=== PATIENT | female | born 1975 | race Caucasian/White ===

== ENCOUNTER 2020-08-26 00:31 | Outpatient (CLI) | payer OTHER, SELFPAY ==
[2020-08-26 19:24] LABS: SARS-CoV-2 RNA PCR Negative
== END 2020-08-26 00:32 | disposition home or self-care (01) ==
LOC: ANHCOVIDDT 00:31
PROVIDERS: PCP Family Medicine; Visit Provider Surgery
DX: Z01.818 Encounter for other preprocedural examination (principal); Z20.828 Contact with and (suspected) exposure to other viral communicable diseases
CPT/HCPCS: 87635; C9803; U0003

== ENCOUNTER 2020-08-26 09:02 | Outpatient (CLI) | payer OTHER, SELFPAY ==
--- NOTE | 2020-08-26 09:04 | ECG_ITS ---
Measurements Intervals [place] Rate: 90 P: -12 UT: 166 QRS: -9 QRSD: 86 T: 36 QT: 359 QTc: 440 Interpretive Statements SINUS RHYTHM BORDERLINE R WAVE PROGRESSION, ANTERIOR LEADS BASELINE ARTIFACT- II, III, AVF BORDERLINE ECG Electronically Signed On 08-26-2020 9:32:32 SAFETY COORDINATOR by Stefan Gu D.O.
[2020-08-26 10:01] LABS: Alanine Aminotransferase 34 U/L (4-35); Albumin Level 4.4 g/dL (3.5-5.1); Alkaline Phosphatase 109 U/L (38-126); Amylase 76 U/L (30-110); Aspartate Amino Transferase 36 U/L (14-36); Bilirubin,Total 0.6 mg/dL (0.2-1.3); Lipase 71 U/L (23-300)
[2020-08-26 10:03] LABS: Anion Gap 9 mmol/L (8-16); Blood Urea Nitrogen 10 mg/dL (7-17); Calcium 8.7 mg/dL (8.4-10.2); Carbon Dioxide 29 mmol/L (22-30); Chloride 101 mmol/L (98-107); Estimated Glomerular Filt Rate > 60; Glucose 192 mg/dL (65-105); Potassium 3.8 mmol/L (3.4-5.0); Sodium 139 mmol/L (137-145)
== END 2020-08-26 09:03 | disposition home or self-care (01) ==
LOC: ANHSURGERY 09:04
PROVIDERS: Anesthesiology; PCP Family Medicine; Visit Provider Surgery
DX: K80.10 Calculus of gallbladder with chronic cholecystitis without obstruction (principal); E78.00 Pure hypercholesterolemia, unspecified; Z01.818 Encounter for other preprocedural examination; R94.31 Abnormal electrocardiogram [ECG] [EKG]
CPT/HCPCS: 36415; 80048; 80076; 82150; 83690; 86850; 86900; 86901; 93005

== ENCOUNTER 2020-08-29 00:58 | Day surgery (SDC) | payer OTHER, SELFPAY ==
[2020-08-24 11:35] VITALS: BMI 35.6
[2020-08-29] VITALS (10 sets, daily range): BP systolic 118–135; BP diastolic 60–88; PULSE 78–101; RESP 10–20; TEMP 36.2–36.9; O2SAT 92–98
--- NOTE | 2020-08-29 06:44 | WPDANESEPPF ---
Anes - Initial Pre Proc Eval Procedure: Operation Date: 08/29/20 07:30 Proposed Procedures p Laparoscopic Cholecystectomy - Kenia Pearce MD Date/Time: 08/29/20 06:44 Surgeon: Kenia Pearce MD Pre Op Diagnosis: Chronic Cholecystitis With Stones Patient Data Age: 45 Gender: F Height: 5 ft 10 in Weight: 112.5 kg Allergies Allergy/AdvReac Type Severity Reaction Status Date / Time cefaclor Allergy Unknown Rash Verified 08/29/20 06:27 DIPHENHYDRAMINE HCL Allergy Unknown HEART Uncoded 08/29/20 06:27 PALPATIONS PROPOXYPHENE NAPSYLATE Allergy Unknown Rash Uncoded 08/29/20 06:27 Home Medications Medication Instructions Recorded Confirmed Type aspirin 81 mg chewable tablet 81 mg PO DAILY 08/19/20 08/29/20 History atorvastatin 80 mg tablet 80 mg PO DAILY 08/19/20 08/29/20 History dulaglutide 0.75 mg/0.5 mL 0.75 mg SUBCUT WEEKLY 08/19/20 08/29/20 History subcutaneous pen injector empagliflozin 10 mg tablet 10 mg PO DAILY 08/19/20 08/29/20 History folic acid 1 mg tablet 1 mg PO DAILY 08/19/20 08/29/20 History gabapentin 600 mg tablet 600 mg PO TID 08/19/20 08/29/20 History insulin regular human 100 unit/mL 1 sliding scale dose SUBCUT 08/19/20 08/29/20 History injection solution USEASDIRECTD levomilnacipran 120 mg capsule,24 120 mg PO QAM 08/19/20 08/29/20 History hr,extended release methylphenidate HCl 20 mg tablet 20 mg PO DAILY 08/19/20 08/29/20 History ondansetron HCl 4 mg tablet 4 mg PO Q8H 08/19/20 08/29/20 History pantoprazole 40 mg tablet,delayed 40 mg PO QAM 08/19/20 08/29/20 History release sulfasalazine 500 mg tablet 500 mg PO BID 08/19/20 08/29/20 History Patient hx anesthesia problems: none Family hx anesthesia problems: none PMFSH Past Medical History Medical History Depression Diabetes GERD (gastroesophageal reflux disease) High cholesterol History of kidney stones History of stroke Surgical History Surgical History H/O discectomy History of delivery History of hysterectomy History of lumbar fusion History of renal stent Social History Social History Smoking packs per day: 1 Smoking cigarettes per day: 20.0 Years smoked: 15 Smoking pack-years: 15.00 Smoking status: Former smoker Tobacco type: cigarettes Smoking end date: 10/07/09 Alcohol intake: current Living arrangements: with family Spiritual care concerns: No Anes - Eval Final PreProcedure Day of Procedure 08/29/20 06:44 Patient weight: obese Heart: regular rate and rhythm Lungs: clear to auscultation Airway: Mallampati scale class II Neurological: alert and oriented Last oral intake: >/= 8 hours ASA classification: III Emergent: no Anesthetic plan: proceed Anesthesia type and monitoring: general GIVS and standard monitoring Informed Consent: The patient's anesthetic plan and its attendant risks and benefits were discussed with the patient/family/POA. Questions were solicited and answers provided to the satisfaction of the patient/family/POA.
[2020-08-29] MEDS: ACETAMINOPHEN 500 MG TABLET 1000 MG PO (06:46)
[2020-08-29] MEDS: LACTATED RINGERS 1,000 ML 30 ML IV CONT ×2 (06:50→08:24)
[2020-08-29] MEDS: KETOROLAC 15 MG/ML VIAL (*BKC) IV PUSH (06:58)
[2020-08-29 07:04] LABS: Glucose Point of Care 169 (65-105)
--- NOTE | 2020-08-29 07:05 | WPDHPUPDATE1 ---
History and Physical Update Update Date/Time: 08/29/20 07:05 History and Physical has been reviewed, including an updated exam of the patient. There are NO changes in the patient's condition. Risks, benefits, and alternatives have been discussed and questions answered. Patient agrees to proceed with procedure.
[2020-08-29] MEDS: CLINDAMYCIN 900 MG/D5W 50 ML 900 MG/50 ML PIGGYBACK 50 MG IVPB (07:21)
--- NOTE | 2020-08-29 07:56 | SUR.PREOP ---
0705-PT TO BR TO VOID.
--- NOTE | 2020-08-29 08:11 | P.OP_ITS ---
Procedure Note - Detailed Date of procedure: 08/29/20 Pre-op diagnosis: Chronic Cholecystitis With Stones Post-op diagnosis: same Procedure performed: laparoscopic cholecystectomy Description of procedure: The patient was taken to the operating room placed in the supine position. After adequate induction of general anesthesia, the patient was prepped and draped in normal sterile fashion. A time-out was then performed to verify the patient's identity as well as the procedure being performed. I then made a 5 mm incision in the infraumbilical region. Through this, a Veress needle was placed into the peritoneal cavity and CO2 gas was then insufflated. After adequate pneumoperitoneum was achieved, the Veress needle was removed and a 5 mm trocar was placed through this incision. I then placed the laparoscope through this trocar site and under direct visualization placed a further 12 mm subxiphoid port as well as 2 additional 5 mm ports in the right upper abdomen. The gallbladder was then identified and was noted to be slightly inflamed. I was able to place a grasper at the dome of the gallbladder and this was retracted anterior and cephalad up over the liver. A 2nd retractor was then placed at the infundibulum and retracted laterally, this allowed visualization of the triangle of Calot. I then was able to visualize the cystic duct in its entirety from its proximal insertion into the gallbladder, to its distal junc tion with the common hepatic/common bile duct junction. At this point, I carefully skeletonized the proximal cystic duct with the [place] dissector. I then clipped and transected the proximal cystic duct. Next I visualized the cystic artery. Again the artery was skeletonized, clipped, and transected. I then used the Bovie cautery to take down the peritoneal attachments of the gallbladder off the liver bed. Once the gallbladder specimen was completely detached, an endo-pouch was placed through the 12 mm port site. I then placed the gallbladder specimen into the Endo pouch and removed the endo-pouch from the 12 mm port site. The specimen will now be sent to pathology for further review. I then copiously irrigated the right upper quadrant. Hemostasis was noted in the liver bed, the clips were noted to be in good position on both the cystic duct stump and the cystic artery stump. No other pathology was noted in the right upper quadrant. I then moved the laparoscope to the subxiphoid port. No iatrogenic injury or other pathology was noted in the lower abdomen. At this point, the abdomen was desufflated and all ports removed. The fascia of the 12 mm subxiphoid port was closed with a 0 Vicryl figure of 8 suture. All port sites were then closed with 4.O Monocryl subcuticular sutures. Dermabond was placed on each incision. The patient tolerated the procedure well, was extubated in the operating room postoperative and will be transferred to the recovery room in stable condition. Implants: none Anesthesia: GETA Surgeon: Kenia Pearce MD Estimated blood loss (mL): 5 Drains: No Packing: No Pathology: yes Complications: No immediate complications Condition: stable Disposition: PACU Findings: chronic cholecystitis
[2020-08-29 08:30] LABS: Glucose Point of Care 201 (65-105)
[2020-08-29] MEDS: fentaNYL CITRATE INJ (*CRX) 100 MCG/2 ML VIAL 25 MCG IV PUSH ×7 (08:59→09:17)
== END 2020-08-29 10:27 | disposition home or self-care (01) ==
PROVIDERS: PCP Family Medicine; Visit Provider Surgery
PROC: 0FT44ZZ Resection of Gallbladder, Percutaneous Endoscopic Approach (ICD-10-PCS; CPT 47562; principal; 2020-08-29 07:30)
DX: K81.1 Chronic cholecystitis (principal); E11.9 Type 2 diabetes mellitus without complications; E78.00 Pure hypercholesterolemia, unspecified; K21.9 Gastro-esophageal reflux disease without esophagitis; F32.9 Major depressive disorder, single episode, unspecified; Z79.4 Long term (current) use of insulin; Z79.82 Long term (current) use of aspirin; Z87.891 Personal history of nicotine dependence; E66.9 Obesity, unspecified; Z68.35 Body mass index [BMI] 35.0-35.9, adult
CPT/HCPCS: 47562; 88304; A9270; J1170; J1885; J2250; J2405; J2704; J2710; J3010; J7030; J7120